=== PATIENT | male | born 1990 | race Caucasian/White ===

== ENCOUNTER 2019-09-28 13:19 | Emergency (ER) | payer MEDICAID ==
[~2019-09-28] VITALS: Ht 170.2 cm; Wt 77.7 kg
--- NOTE | 2019-09-28 14:46 | NUR ---
ENDOSCOPY SPECIALTY TECHNICIAN: PT AMBULATORY WITH STEADY GAIT TO ROOM AT THIS TIME.
--- NOTE | 2019-09-28 14:53 | NUR ---
ENVELOPE FOLD OPERATOR: PT AMBULATORY WITH STEADY GAIT TO ROOM.
--- NOTE | 2019-09-28 15:08 | NUR ---
PALLAVI RN NOTE: PT CHANGED INTO GOWN, ON MONITOR. C/O CP WITH INCREASED GAS. CP INCREASED MORE AFTER EATING AND WHEN BENDING OVER. PT ABDOMINAL NON-TENDER. NAD NOTED AT THIS TIME. AWAITING HEDY PRECIADO.
[2019-09-28] MEDS ORDERED: MAALOX/HYOSCYAMINE/LIDOCAINE 45 ML BTL ONE (15:58)
[2019-09-28] MEDS ORDERED: MAALOX/HYOSCYAMINE/LIDOCAINE 45 ML BTL PO ONE (16:00)
[2019-09-28 16:27] VITALS: BP 119/76
== END 2019-09-28 17:10 | disposition home or self-care (01) ==
LOC: ED 15:50
DX: R07.89 Other chest pain (principal); R00.2 Palpitations
CPT/HCPCS: 71045; 93005; 99283